=== PATIENT | male | born 1970 | race Native Hawaiian/Other Pacific Islander ===

== ENCOUNTER 2020-06-18 13:26 | Emergency (ER) | payer OTHER ==
[~2020-06-18] VITALS: Ht 177.8 cm; Wt 81.6 kg
[2020-06-18 13:56] LABS: PLATELET COUNT 251 K/uL (142-355)
[2020-06-18 14:05] LABS: SODIUM 131 mmol/L (136-145)
[2020-06-18 18:05] VITALS: BP 123/78; TEMP 98.2
== END 2020-06-18 18:05 ==
LOC: ED 13:32
PROVIDERS: Family Medicine
PROC: 0T9B70Z Drainage of Bladder with Drainage Device, Via Natural or Artificial Opening (ICD-10-PCS; principal; 2020-06-18)
DX: T43.621A Poisoning by amphetamines, accidental (unintentional), initial encounter (principal); Y92.89 Other specified places as the place of occurrence of the external cause
CPT/HCPCS: 36415; 51702; 80053; 80307; 80320; 80329; 81000; 82550; 84484; 85027; 93005; 96360; 96375; 99284; J2060